=== PATIENT | male | born 1990 | race African-American/Black ===

== ENCOUNTER 2022-10-31 16:30 | Outpatient (CLI) | payer OTHER ==
[2022-10-31 20:56] LABS: BASOPHILS % (AUTO) 0.5 %; EOSINOPHILS # (AUTO) 0.1 10^3/uL (0.0-0.7); EOSINOPHILS % (AUTO) 1.6 %; HCT - HEMATOCRIT 46.2 % (42.0-52.0); HGB - HEMOGLOBIN 15.6 g/dL (14.0-18.0); LYMPHOCYTES # (AUTO) 2.4 10^3/uL (1.5-3.5); LYMPHOCYTES % (AUTO) 56.5 %; MEAN CORPUSCULAR HEMOGLOBIN 31.8 pg (27.0-31.0); MEAN CORPUSCULAR HGB CONC 33.8 g/dL (32.0-36.0); MEAN CORPUSCULAR VOLUME 94.1 fL (80.0-94.0); MEAN PLATELET VOLUME 11.6 fL (7.4-11.4); MONOCYTES # (AUTO) 0.3 10^3/uL (0.0-1.0); MONOCYTES % (AUTO) 7.9 %; NEUTROPHILS # (AUTO) 1.4 10^3/uL (1.5-6.6); NEUTROPHILS % (AUTO) 33.5 %; PLT - PLATELET COUNT 248 10^3/uL (130-450); RED BLOOD COUNT 4.91 10^6/uL (4.70-6.10); WHITE BLOOD COUNT 4.3 x10^3/uL (4.8-10.8)
[2022-10-31 21:08] LABS: ALBUMIN 4.6 g/dL (3.2-5.5); ALBUMIN/GLOBULIN RATIO 1.3 (1.0-2.2); BILIRUBIN,TOTAL 0.8 mg/dL (0.2-1.0); CALCIUM 9.2 mg/dL (8.5-10.3); CREATININE 1.1 mg/dL (0.6-1.2); TOTAL PROTEIN 8.1 g/dL (6.7-8.2)
[2022-10-31 21:13] LABS: ESTIMATED AVERAGE GLUCOSE 114 mg/dL (70-100); HEMOGLOBIN A1c% 5.6 % (4.27-6.07)
[2022-10-31 21:24] LABS: THYROID STIMULATING HORMONE 1.72 uIU/mL (0.34-5.60)
== END 2022-10-31 16:45 | disposition home or self-care (01) ==
LOC: LAB.N 16:30
PROVIDERS: ATTEND Registered Nurse
DX: R51.9 Headache, unspecified (principal); R07.89 Other chest pain
CPT/HCPCS: 36415; 80053; 83036; 84443; 84484; 85025